=== PATIENT | female | born 1950 | race Caucasian/White ===

== ENCOUNTER → 2023-09-30 10:26 | Outpatient (REF) | payer MEDICARE, BC, SELFPAY | LOC: HWRAD 10:26 | PROVIDERS: ATTENDING PHYSICIAN Internal Medicine Rheumatology; FAMILY PHYSICIAN Internal Medicine | DX: M81.0 Age-related osteoporosis without current pathological fracture (principal) | CPT/HCPCS: 77080 ==

== ENCOUNTER 2023-11-08 19:50 | Emergency (ER) | payer MEDICARE, BC, SELFPAY ==
[2023-11-08 19:53] VITALS: BP 208/114
--- NOTE | 2023-11-08 20:07 | ED.GENMED ---
History of Present Illness
General
Chief Complaint: Skin Problem
Source: patient
Time Seen by Provider: 11/08/23 20:00
Travel History
Have you had any contact with someone who has COVID-19?: No
Do you have any symptoms of coronavirus? Fever > 100 degrees, chills, cough, shortness of breath, sore throat, loss of taste or smell, muscle aches, or headache?: No
History of Present Illness
History of Present Illness:
73-year-old female with past medical history of high cholesterol presenting emergency department for evaluation of redness and discomfort on her face that she noticed while outside today stating that she was washing a green discoloration off of her
deck which patient could have been mold but overall she is not sure when she started to feel a tingling sensation on both sides of her face and then discomfort and when going inside noticed redness on her cheeks and forehead. Patient states she is
not sure if it was a reaction from the substance that she was cleaning off of the deck. She notes that she is also currently taking Valtrex for a mild herpes outbreak and tonight is her last dose of medication. She states that she also went for a
walk outside following the outdoor work she had been completing. Patient states she did place some suntan lotion on her face which she has used plenty of times before as well as was wearing a hat. Patient has no other concerns at this time.
Past History
Past History
ED Past Medical History: Hypercholesterolemia
ED Past Surgical History: Tonsilectomy and Other
Social History
Tobacco: Non-smoker
Alcohol: None
Drug: None
Personal:
Living: with family
Review of Systems
Review of Systems
All Other Systems: ROS reviewed and negative except as documented in HPI and ROS
Phy Exam
Physical Exam
Physical Exam:
GENERAL: Alert , in no apparent distress
EYE: conjunctiva clear
Head: Normocephalic atraumatic, first-degree sunburn to the bilateral cheeks and forehead without any blister formation
NECK: Supple, no lymphadenopathy, tolerating secretions
ENT: mmm.
LUNGS: no acute respiratory distress
NEUROLOGICAL: Alert and oriented
SKIN: Warm and dry, skin intact.
MUSCULOSKELETAL: well perfused.
PSYCH: Normal and appropriate interaction.
Scores
Heart Failure Risk
Heart Failure Risk Score: Not Applicable
Heart Score for Chest Pain Patients
STEMI patient?: Not applicable
Withdrawal Assessment of Alcohol
Withdrawal Assessment Completed?: Not applicable
Course
Vital Signs
Initial and Last Documented VS:
Initial Vital Signs
Temp Pulse Resp BP Pulse Ox
98.7 F 92 20 208/114 99
11/08/23 19:53 11/08/23 19:53 11/08/23 19:53 11/08/23 19:53 11/08/23 19:53
Last Documented Vital Signs
Temp Pulse Resp BP Pulse Ox
98.7 F 92 20 160/92 100
11/08/23 19:53 11/08/23 19:53 11/08/23 19:53 11/08/23 20:15 11/08/23 20:15
MDM/Problems Addressed
Differential Diagnosis Includes:
Sunburn, contact dermatitis, medication reaction, no concern for airway compromise
MDM/Problems Addressed:
73-year-old female presenting emergency department for evaluation of redness and discomfort to her face. Patient spent an extensive amount of time outside today. She does note she was wearing a hat and had used some suntan lotion but states did
not reapply. She did not wear her hat while going on a walk. I suspect sunburn to be the most likely diagnosis. Possibly Valtrex may have exacerbated her symptoms. Advise she can use either moisturizer or aloe to help soothe the area as well as
ice pack or cool washcloth to help soothe the area. Patient's blood pressure from triage is noted. Advise she follow-up closely with her primary care provider to have this rechecked and monitoring. Patient is stable for discharge home. Aware of
return precautions to the ER.
*Pulse Oximetry
Patient hypoxic: no
*Critical Care Note
Total Time (30-74mins, 75-104mins- exclusive of procedures): Not Applicable
ED Attending Note
-
Portions of this chart may have been created with voice recognition software.� Occasional wrong word or��sound alike� substitutions may have occurred due to the inherent limitations of voice recognition software.
Discharge Plan
Departure
Patient Disposition: Home (Routine Discharge)
Date of Disposition: 11/08/23
Time of Disposition: 20:07
Patient with high blood pressure during this ER visit?: Yes
Discharge Problem:
1st degree sunburn
Instructions: Sunburn (DC)
Interventions
Interventions:
*Risk Screen - Suicide Last Done: 11/08/23 19:53
*General Assessment Last Done: 11/08/23 19:53
*Neglect/Abuse Screening Last Done: 11/08/23 19:53
*Nursing Disposition Last Done: 11/08/23 20:31
ED-Skin Assessment Last Done: 11/08/23 20:20
Discharge Date and Time
Discharge Date/Time: 11/08/23 20:32
Print Language: BELARUSIAN
[2023-11-08 20:15] VITALS: BP 160/92
== END 2023-11-08 20:32 | disposition home or self-care (01) ==
LOC: EMR 19:50
PROVIDERS: EMERGENCY PHYSICIAN Emergency Medicine; FAMILY PHYSICIAN Internal Medicine
DX: L55.0 Sunburn of first degree (principal); R20.2 Paresthesia of skin; R03.0 Elevated blood-pressure reading, without diagnosis of hypertension; E78.00 Pure hypercholesterolemia, unspecified; B00.9 Herpesviral infection, unspecified; Z88.2 Allergy status to sulfonamides
CPT/HCPCS: 99282

== ENCOUNTER → 2025-02-23 12:12 | Outpatient (REF) | payer MEDICARE, BC, SELFPAY | LOC: HWWDC 12:12 | PROVIDERS: ATTENDING PHYSICIAN Internal Medicine | DX: Z12.31 Encounter for screening mammogram for malignant neoplasm of breast (principal) | CPT/HCPCS: 77063; 77067 ==